=== PATIENT | female | born 1970 | race Caucasian/White ===

== ENCOUNTER 2017-10-23 16:51 | Outpatient (CLI) | payer OTHER | END 2017-10-23 16:52 | disposition home or self-care (01) | LOC: BICRAD 16:51 | PROVIDERS: ATTEND Physician Assistant | DX: R06.02 Shortness of breath (principal); R91.8 Other nonspecific abnormal finding of lung field; J18.9 Pneumonia, unspecified organism | CPT/HCPCS: 71046 ==

== ENCOUNTER 2018-11-08 11:30 | Inpatient (IN) | payer OTHER ==
[2018-11-08 11:58] VITALS: BMI 48.6
[2018-11-08 12:47] LABS: Hemoglobin 12.8 g/dL (12.0-16.0); Mean Corpuscular HGB CONC 31.4 g/dL (32.0-36.0); Mean Corpuscular Hemoglobin 24.6 pg (27.0-31.0); Mean Corpuscular Volume 78.5 fL (78.0-98.0); Mean Platelet Volume 9.1 fL (7.4-10.4); Platelet Count 315 thou/uL (130-400); RBC Distribution Width 15.3 % (11.5-14.5); Red Blood Cell (RBC) Count 5.19 mill/uL (4.20-5.40)
[2018-11-08 13:10] LABS: Anion Gap 12 mmol/L (10-20); BUN (Urea Nitrogen) 14 mg/dL (7.0-18.7); Calc. Creatinine Clearance 0 mL/min (70-130); Calcium 8.9 mg/dL (7.8-10.44); Carbon Dioxide 27 mmol/L (22-29); Chloride 104 mmol/L (98-107); Estimated GFR-MDRD 71; Glucose 80 mg/dL (70-105); Potassium 3.9 mmol/L (3.5-5.1); Sodium 139 mmol/L (136-145)
[2018-11-11] MEDS ORDERED: Gabapentin 300 MG CAP ONE (06:07)
[2018-11-11] MEDS ORDERED: CeleCOXIB 100 MG CAP ONE (06:07)
[2018-11-11] MEDS ORDERED: Famotidine/PF 20 mg/2ml Vial ONE (06:07)
[2018-11-11] MEDS ORDERED: Fentanyl 100 MCG/2 ML VIAL ONE (06:45)
[2018-11-11] MEDS ORDERED: Bupivacaine HCl 0.5%/Epinephrine 1:200,000/PF 30 ml Vial ONE (06:56)
[2018-11-11] MEDS ORDERED: SUGAMMADEX SODIUM 200 MG/2 ML VIAL ONE (11:17)
[2018-11-11] MEDS ORDERED: Rocuronium Bromide 10 MG/ML (10ML VIAL) ONE (14:05)
[2018-11-11] MEDS ORDERED: Ondansetron PF 4 MG/2 ML Vial ONE (14:05)
[2018-11-11] MEDS ORDERED: Glycopyrrolate 0.2 MG/ML 5 ML SYRINGE ONE (14:05)
[2018-11-11] MEDS ORDERED: Lidocaine 1% PF 5 ML VIAL ONE (14:05)
[2018-11-11] MEDS ORDERED: PROPOFOL 200 MG/20 ML VIAL ONE (14:05)
[2018-11-11] MEDS ORDERED: PHENYLEPHRINE-NS 100 MCG/ML 10 ML SYRINGE ONE (14:05)
[2018-11-11] MEDS ORDERED: Dexamethasone 20 MG/5 ML VIAL ONE (14:05)
[2018-11-11] MEDS ORDERED: Ketorolac Tromethamine 30 MG/ML VIAL ONE (14:05)
[2018-11-11] MEDS ORDERED: Artificial Tear Sol 15 ML BOT L EYE PRN (15:11)
[2018-11-11] MEDS ORDERED: Zolpidem Tartrate 5 MG TAB PO PRN (15:33)
[2018-11-11] MEDS ORDERED: Morphine 4 MG/ML VIAL SLOW IVP PRN (15:33)
[2018-11-11] MEDS ORDERED: HYDROcodone/Acetaminophen 5/325 mg Tablet PO PRN ×2 (15:33)
[2018-11-11] MEDS ORDERED: Bisacodyl 10 MG SUPP PR PRN (15:33)
[2018-11-11] MEDS ORDERED: Simethicone Chewable 80 MG TAB PO PRN (15:33)
[2018-11-11] MEDS ORDERED: Lactated Ringer's 1,000 ML IV SCH (15:33)
[2018-11-11] MEDS ORDERED: Acetaminophen 500 MG TAB PO PRN (15:33)
[2018-11-11] MEDS ORDERED: Ondansetron PF 4 MG/2 ML Vial IVP PRN (15:33)
[2018-11-11] MEDS ORDERED: Promethazine HCl 25 MG/ML VIAL IM PRN (15:33)
[2018-11-11] MEDS ORDERED: diphenhydrAMINE 25 MG CAP PO PRN (15:33)
--- NOTE | 2018-11-11 16:22 | OP ---
DATE OF PROCEDURE: 11/11/2018 PREOPERATIVE DIAGNOSES: 1. Uterine fibroids. 2. Pelvic pain. 3. Menorrhagia. POSTOPERATIVE DIAGNOSES: 1. Uterine fibroids. 2. Pelvic pain. 3. Menorrhagia. PROCEDURES PERFORMED: Robotic-assisted; 1. Total laparoscopic hysterectomy. 2. Bilateral salpingectomy. 3. Extracorporeal morcellation. ANESTHESIA: General endotracheal. AUTO SERVICE ADVISOR SURGEON: Dr. Latoya Ayers. ESTIMATED BLOOD LOSS: 150 mL. IVF: 1100 mL of crystalloid. URINE OUTPUT: 300 mL of clear urine. COMPLICATIONS: None. DRAINS: Molina catheter. PATHOLOGY: Uterus, cervix, and bilateral fallopian tubes. FINDINGS: A 22-week size uterus with multiple subserosal fibroids present, weighing 690 g following morcellation. The uterus sounded to 18 cm. The ovaries were normal bilaterally and the fallopian tubes were normal bilaterally. There were minimal adhesions in the lower uterine segment from the patient's previous sections. The bladder was intact, back filling of the bladder during multiple steps in the procedure, including at the conclusion. The ureters bilaterally were dissected out in the retroperitoneum and were visible during the entire case and were not involved or kinked in any way with dissection of uterine pedicles and the vaginal cuff closure. On low pressure check, hemostasis was noted. There was no spillage of material during the morcellation process into the abdomen. DESCRIPTION OF PROCEDURE: The patient was taken to operating room, where general anesthesia was obtained without difficulty. The patient was prepped and draped in a sterile fashion in a dorsal lithotomy position. A Molina catheter was placed in the bladder. A speculum was placed in the vagina. The anterior lip of the cervix was grasped with single-tooth tenaculum. The uterus then sounded to 18 cm. The cervix was progressively dilated with Shady dilators and the NATALY manipulator was assembled with a 12-cm tip and a 4-cm colpotomizer ring. The NATALY tip was inserted into the uterine fundus. The balloon was inflated and speculum was removed. The colpotomizer ring was advanced to fit snugly around the cervix and the tenaculum was removed off the cervix. Legs were placed in low lithotomy. Attention was turned to the abdomen. The uterus was palpated while manipulating and approximately 4 fingerbreadths above the umbilicus. It was marked out in the midline for the GelPOINT and the stomach was confirmed to be decompressed with an OG tube. The 0.5% Marcaine with epi was infiltrated into this area above the umbilicus and a 2.5 cm skin incision was made with a knife. The subcutaneous tissue was then grasped with Medhat clamps and dissected with a Álvarez down to the level of the fascia that was grasped with 2 Medhat clamps on each side and incised with the Álvarez scissors. This incision was then extended and the peritoneum was bluntly entered into. The Mini Aguila was then placed into the incision and cinched down. It was confirmed there was no intraabdominal material structures contained in the Aguila prior to cinching it down. The 12-mm trocar was then placed through the Mini GelPOINT and then the large applied medical bag was placed into the upper abdomen. The Mini GelPOINT was affixed to the top of the Mini Aguila and pneumoperitoneum was established. Steep Trendelenburg was obtained. The robotic camera was placed into the abdomen and the right and left lower quadrant robotic ports were placed under direct visualization after infiltrating with anesthetic. A right upper quadrant 11-mm port was also placed under direct visualization after infiltrating with anesthetic. The robot was then docked. The right robotic arm contained monopolar scissors, left robotic arm contained a fenestrated bipolar. The surgeon console took control and the left fallopian tube was grasped and elevated. The mesosalpinx was cauterized and transected with the fenestrated and the scissors and the medial fallopian tube was clamped across, cauterized, transected, and the fallopian tube was removed out of the abdomen. The utero-ovarian was cauterized with the bipolar as well as the round ligament. The camera was removed to be cleaned and then reinserted. The round ligament was incised with the scissors and hemostasis was achieved with the fenestrated. The utero-ovarian was also cauterized again and then incised with the scissors and the meso-ovarium was transected down to the round ligament that had already been incised. The retroperitoneum was opened up and visualization was suboptimal. The anterior leaf of the broad ligament was incised slightly below the level of the round ligament as well as the posterior leaf of the broad ligament. Secondary to poor visualization around the large lower uterine segment fibroid that protruded off the left side, attention was turned to the right side, where the right fallopian tube was grasped and elevated. The mesosalpinx was cauterized and transected and the medial fallopian tube was clamped across, cauterized, transected, and removed out of the abdomen. The utero-ovarian was cauterized as well as the round ligament more laterally as the uterus was slightly deviated to the right side. The utero-ovarian was incised after cautery as well as the round ligament was incised in the lateral portion. This opened up the broad ligament. This incision was taken over to where the utero-ovarian incision was with scissors and achieving hemostasis with the bipolar. At this time, the uterus was manipulated easier and was able to be deviated to the left side. The ureter was noted very well visibly on the right side that had a vein running with it. The posterior leaf of the broad ligament was able to be dropped down posteriorly. The anterior leaf of the broad ligament was also incised and blunt dissection of the retroperitoneum using a pushing and spreading technique with both instruments was performed to skeletonize the vessels. The anterior leaf of the broad ligament was then incised down to the bladder flap. The patient had previous C-sections and scarring was noted to the lower uterine segment. The bladder was backfilled to note the limitations of the bladder and there was a filmy and purely adhesed portion of the bladder that did not appear to contain bladder mucosa close to the uterus. Therefore, this was incised and layered out with the scissors and fenestrated and the bladder was able to be dropped down, and after initial incision was performed on the lower uterine segment, the bladder was bluntly dissected down on the cervix. The vessels were adequately skeletonized on the right side. The ureter was also noted in the retroperitoneum once the posterior leaf had dropped down and this was visible peristalsing during the case and the skeletonization and was allowed to fall much laterally with adequate skeletonization. The left side was then addressed. The uterus was deviated over to the right. Posterior leaf of the broad ligament was dropped down. The ureter on this side was also identified. This ureter was running more medially. The anterior leaf of the broad ligament was dropped down and incised down to the level of the contralateral sides incision. The uterine vessels were skeletonized. The ureter was then followed and visible in the retroperitoneum and it crossed underneath the uterine artery just to the level of the internal cervical os. Therefore, this was carefully skeletonized and allowed to drop away. The bladder was taken down below what was felt to be the colpotomizer ring and the uterine vessels were cauterized bilaterally. These vessels were cauterized a little bit higher than the internal cervical os to make an adequate pedicle to not involve the ureters bilaterally. An incision was made over what was thought to be colpotomizer ring; however, this was quickly identified inside the uterus and the manipulator tip was visible. Therefore, it was determined that the incision was made too high and the ring was down lower and the bladder was backfilled once again, now take the limits, and the bladder was taken down further and the colpotomizer ring was actually identified at that time and this was confirmed to continue to fit snugly around the cervix. The bladder pillars were cauterized and the bladder was ensured to be taken down across the pubic cervical fascia including the vascular pedicles below the level of colpotomizer ring. Again, the ureter was noted especially on the left side since it was running closely to the level of the uterine pedicle at the internal cervical os, and again, careful dissection to bring the ureter more lateral and dissect through the retroperitoneum was performed to ensure no ureteral damage. The vessels were cauterized on the left side slightly above the internal cervical os. They were incised above the level of the internal cervical os, and once the pedicle was completely transected through, the vessel was dissected off the lateral portion of the uterus and this allowed the ureter to fall away. The anterior colpotomy was performed. Colpotomizer ring was noted and this was carried around to the lateral sides. The right side was also addressed. The ureter was noted to be running laterally on this side and the vessels were then cauterized and incised in a similar fashion to the other side to leave the pedicle and allow the ureter to fall away. The uterus was not able to be anteverted secondary to the weight of the fundus, and therefore, the posterior part was approached from this side. Visualization was difficult secondary to the bowel creeping up into the field and a large amount of backbleeding from the uterus. This was suctioned and irrigated and careful visualization was made to ensure no injury to bowel structures or sidewall structures. The uterus was finally completely transected and the manipulator was removed out of the uterus. The uterus was placed into the upper abdomen. Irrigation was performed of the vaginal cuff. The scissors were traded out for the needle farm truck driver and hemostasis was achieved through the vaginal cuff. The 2-0 barbed STRATAFIX suture was passed into the abdomen and the vaginal cuff was closed carefully in a running fashion, incorporating vaginal mucosa in each bite, ensuring that the lateral tissues were not pulled into the angles of the vaginal cuff, so as to keep the ureter and the ureters were again noted in the retroperitoneum laterally to the cuff angle. After complete closure, the suture was run back for several sutures and then transected and the needle was removed out of the abdomen. Irrigation was performed of the vaginal cuff. Low pressure check was performed and the bladder was backfilled, noting excellent hemostasis and no bladder injury. At this time, the applied medical bag that was in the upper abdomen was brought down into the pelvis as well as the uterus. The bag was cinched down with 2 silk ties. The distal tie was cut and removed out of the abdomen. The uterus was placed on top of the bag at this time and the upper tie on the bag was located and cut and then removed out of the abdomen and this allowed the bag to deploy open and the uterine specimen to fall in. There was a string and loop type of closure on the top of the bag and this was hooked; however, upon pulling the bag taut, the uterus slipped out of the bag. Therefore, the string was taken out of the loop. The uterus was then placed into the bag in a different manner and ensure that the bag was pulled up around the uterus adequately to where it would prevent any slippage of the uterus out once the hook and string were looped together, and then the string was hooked around the loop and instrument was brought through the meningeal point and the string was brought out of the abdomen and this was under direct visualization with the robotic camera to ensure that the specimen stayed in the bag. The robot was then undocked and the patient was flattened out. All instruments were removed out of the abdomen. The applied medical bag was brought out of the Mini Aguila. The specimen was in the bag. The Mini Aguila was brought out of the abdomen and then placed on the inside of the bag as a means to hold the bag open. The uterus was then grasped with a Andrez clamp and morcellation was performed in a contained fashion using a C incision technique with an 11 blade. This took approximately 35 additional minutes and the specimen was then passed off and weight resulting in approximately 690 g. Once the specimen had been completely removed out of the bag, the Mini Aguila was brought out of the abdomen and the bag was brought out of the abdomen. No holes in the bag were located. The abdominal incision was irrigated and suctioned and the fascia was marked with a Medhat clamp. The abdominal midline incision was closed with 0 PDS in a running fashion with excellent reapproximation. The skin was then closed with 4-0 Monocryl in a subcuticular fashion. Dermabond was applied. All instruments were removed out of the vagina. The vaginal cuff was checked and noted to be hemostatic. The patient tolerated the procedure well. Sponge, lap, and needle counts correct x2. The patient was taken to Recovery in stable condition. The patient received Ancef 2 g prior to the procedure. Job ID: [id number]
[2018-11-11] MEDS: Ketorolac Tromethamine 30 MG/ML VIAL IVP SCH ×2 (16:58→21:52)
[2018-11-11] MEDS: Gabapentin 300 MG CAP PO SCH (21:52)
[2018-11-11] MEDS ORDERED: Metoprolol Tartrate 5 MG/5 ML VIAL IVP PRN (21:55)
[2018-11-12] MEDS: Ketorolac Tromethamine 30 MG/ML VIAL IVP SCH (03:48)
[2018-11-12 07:48] VITALS: TEMP 98
[2018-11-12 07:58] LABS: Hemoglobin 11.6 g/dL (12.0-16.0); Mean Corpuscular HGB CONC 33.9 g/dL (32.0-36.0); Mean Corpuscular Hemoglobin 26.5 pg (27.0-31.0); Mean Corpuscular Volume 78.1 fL (78.0-98.0); Mean Platelet Volume 9.5 fL (7.4-10.4); Platelet Count 271 thou/uL (130-400); Red Blood Cell (RBC) Count 4.39 mill/uL (4.20-5.40); White Blood Cell (WBC) Count 14.4 thou/uL (4.8-10.8)
[2018-11-12] MEDS ORDERED: Ibuprofen 800 MG TAB PO SCH ×2 (08:00→10:00)
[2018-11-12] MEDS: Gabapentin 300 MG CAP PO SCH (08:16)
--- NOTE | 2018-11-12 08:20 | PDOC.EVN ---
Event Note - Event Note Event Note: POD1 S: No complaints, slight inc soreness, pain controlled. Davis diet, +flatus and voiding. O: VSSAF, mildly hypertensive overnight NAD RRR CTAB S/appttp/ND/BS pos Inc c/d/i No e/c/c hgb 11.6 A) POD1 s/p RATLH P) Met postop milestones including davis reg diet, voiding, ambulating, pain controlled. DC home FU 2 wk. Postop meds: [place] and Ibuprofen. Path pending.
[2018-11-12 11:33] VITALS: BP 160/74
[2018-11-16] MEDS ORDERED: Ibuprofen 800 MG TAB PO SCH (22:00)
== END 2018-11-12 13:30 | disposition home or self-care (01) | DRG 742 ==
LOC: SURG A 11-11 05:38 → 3SE 11-11 13:44
PROVIDERS: ADMIT Student in an Organized Health Care Education/Training Program; ATTEND Student in an Organized Health Care Education/Training Program
PROC: 0UT94ZZ Resection of Uterus, Percutaneous Endoscopic Approach (ICD-10-PCS; principal; 2018-11-11)
PROC: 0UT74ZZ Resection of Bilateral Fallopian Tubes, Percutaneous Endoscopic Approach (ICD-10-PCS; 2018-11-11)
PROC: 8E0W4CZ Robotic Assisted Procedure of Trunk Region, Percutaneous Endoscopic Approach (ICD-10-PCS; 2018-11-11)
DX: D25.9 Leiomyoma of uterus, unspecified (principal); Z68.42 Body mass index [BMI] 45.0-49.9, adult; R10.2 Pelvic and perineal pain; N92.0 Excessive and frequent menstruation with regular cycle; E66.01 Morbid (severe) obesity due to excess calories
CPT/HCPCS: 36415; 80048; 85027; 86850; 86900; 86901; 88307; J0131; J0670; J1100; J1885; J2001; J2405; J2704; J3010; S0028